=== PATIENT | female | born 1980 | race Caucasian/White ===

== ENCOUNTER 2021-04-15 16:27 | Emergency (ER) | payer SELFPAY ==
[2021-04-15 18:14] VITALS: BP 0/0; PULSE 0; RESP 0; TEMP -17.7; TEMP 0
== END 2021-04-15 18:16 | disposition left against medical advice (07) ==
LOC: UTC 16:32
PROVIDERS: Emergency Provider Nurse Practitioner Family; PCP Nurse Practitioner
DX: Z53.21 Procedure and treatment not carried out due to patient leaving prior to being seen by health care provider (principal)

== ENCOUNTER 2023-08-06 08:19 | Outpatient (CLI) | payer BC, SELFPAY ==
[2023-08-06 08:34] LABS: Basophils # 0.1 K/mm3 (0-0.2); Basophils % 0.8 % (0.1-2.0); Eosinophils # 0.3 K/mm3 (0.0-0.4); Eosinophils % 3.9 % (0.1-12.0); Hematocrit 41.7 % (37.0-47.0); Hemoglobin 13.2 g/dL (12.2-16.2); Lymphocytes # 2.4 K/mm3 (0.7-4.5); Lymphocytes % 31.5 % (10-50); Mean Corpuscular HGB Conc 31.7 g/dL (31.8-35.4); Mean Corpuscular Hemoglobin 29.1 pg (27.0-31.2); Mean Corpuscular Volume 91.8 fl (81-99); Mean Platelet Volume 7.9 fl (7.4-10.4); Monocytes # 0.4 K/mm3 (0.1-1.0); Monocytes % 4.7 % (1.7-9.3); Neutrophils # 4.5 K/mm3 (1.8-7.8); Neutrophils % 59.1 % (37.0-80.0); Platelet Count 315 K/mm3 (142-424); Red Blood Count 4.54 M/mm3 (4.20-5.40); Red Cell Distribution Width 13.6 % (11.5-17.5); White Blood Count 7.6 K/mm3 (4.8-10.8)
--- NOTE | 2023-08-06 08:42 | MM_ITS ---
PROCEDURE INFORMATION: Exam: Bilateral Screening 3D Mammography Exam date and time: 08/06/2023 8:52 AM Age: 43 years old Clinical indication: Screening mammogram TECHNIQUE: Imaging protocol: Bilateral Screening tomosynthesis and 2D mammography including computer-aided detection (CAD) when performed. COMPARISON: MG MOON MAMMO DIAG DIGITL BILAT 12/31/2011 1:11 PM FINDINGS: MAMMOGRAPHY: Breast composition: The breast is heterogeneously dense, which may obscure small masses. Mass: None. Architectural distortion: No new or suspicious architectural distortion. Calcifications: No new or suspicious calcifications are present Asymmetric density: No new or suspicious asymmetric density is present Skin thickening: None. Axillary adenopathy: None. IMPRESSION: No mammographic evidence of malignancy. Recommend annual screening mammography unless otherwise clinically indicated. ASSESSMENT: BI-RADS category 1: Negative.
[2023-08-06 09:24] LABS: Alanine Aminotransferase 13 U/L (12-78); Albumin Level 4.2 g/dl (3.5-5.0); Albumin/Globulin Ratio 1.5 (1.1-1.8); Alkaline Phosphatase 70 U/L (38-126); Anion Gap 13.3 mEq/L (5-15); Aspartate Amino Transferase 21 U/L (14-36); Bilirubin,Total 0.6 mg/dl (0.2-1.3); Blood Urea Nitrogen 13 mg/dl (7-17); Calcium 9.3 mg/dl (8.4-10.2); Carbon Dioxide 22 mmol/L (22.0-30.0); Chloride 106 mmol/L (98-107); Chol/HDL Ratio 4.7 (1-3.5); Cholesterol 218 mg/dl (140-200); Estimated Glomerular Filt Rate 92 ml/min (>60); GFR (African American) 112 ML/MIN (>60); Globulin 2.8 g/dL (1.3-3.2); Glucose 99 mg/dl (74-100); HDL Cholesterol 46 mg/dl (40-60); Potassium 4.3 mmoL/L (3.5-5.1); Sodium 137 mmol/L (136-145); Triglycerides 88 mg/dl (30-150); VLDL Cholesterol 18 mg/dL (0-40)
[2023-08-06 09:35] LABS: Direct LDL Cholesterol 138.25 mg/dL (100-129)
== END 2023-08-06 23:59 | disposition home or self-care (01) ==
PROVIDERS: PCP Family Medicine; Visit Provider Nurse Practitioner Obstetrics & Gynecology
DX: Z12.31 Encounter for screening mammogram for malignant neoplasm of breast (principal)
CPT/HCPCS: 36415; 77063; 77067; 80053; 80061; 85025

== ENCOUNTER 2023-08-11 12:55 | Outpatient (CLI) | payer BC, SELFPAY ==
--- NOTE | 2023-08-11 12:55 | US_ITS ---
PROCEDURE: US TRANSVAGINAL CLINICAL INDICATION: Pelvic pain and heavy periods COMPARISON: No exams were available for comparison FINDINGS: Transvaginal sonographic images of the pelvis were obtained. UTERUS: 7.9 cm x 4.6 cmx 3.8 cm anteverted with a combined endometrial thickness of 2.8mm. There is a small amount of fluid within the cervix. There is a trace amount of fluid at the fundus of the uterus. LEFT OVARY: 6tec0ghe1.5cm with a volume of 5.4ml. There is a follicle measuring 1.8 cm x 1.4 cm x 2.1 cm. RIGHT OVARY: 2cmx [id number] with a volume of 3.3ml. There is a small follicle measuring 0.4 cm x 0.5 cm x 0.5 cm. Both ovaries are seen and appear normal. Doppler flow to both ovaries are seen. There is no fluid in the cul-de-sac. IMPRESSION: 1. Anteverted uterus normal in shape and size. The endometrium is thin. 2. There is a small amount of fluid within the endometrium and cervix. 3. Both ovaries are seen and appear normal. There is a 2.1 cm follicle in the left ovary. 4. No fluid in the cul-de-sac Dictated by: Asher Vale MD 08/11/2023 16:09 Asher Vale MD in [place] 08/11/2023 16:09
== END 2023-08-11 23:59 | disposition home or self-care (01) ==
LOC: RAD 12:55
PROVIDERS: PCP Family Medicine; Visit Provider Nurse Practitioner Obstetrics & Gynecology
DX: R10.2 Pelvic and perineal pain (principal); N92.0 Excessive and frequent menstruation with regular cycle
CPT/HCPCS: 76830

== ENCOUNTER 2024-12-22 07:42 | Outpatient (CLI) | payer BC, SELFPAY ==
--- OUTSIDE RECORDS SUMMARY | 2023-07-31 11:00 | XMS_ITS ---
Author Organization [facility] Address [address] [id number] Care Team Providers Care Wrapper Opener Name Role Phone Basilia Kiko Primary Care Provider Allergies Allergen (clinical drug ingredient) Drug/Non Drug Allergy documented on EMR Reaction Allergy Type Onset Date Status erythromycin Erythromycin Base Unknown Drug Allergy Active Iodine Unknown Drug Allergy Active levofloxacin levoFLOXacin Unknown Drug Allergy A ctive Medicinal cephalosporin and acting as antibacterial agent (FN) Cephalosporins Unknown Drug Allergy Active hydrocodone HYDROcodone Unknown Drug Allergy Act madi Iodinated contrast media (substance) Iodinated Contrast Media Unknown Drug Allergy Active oxycodone oxyCODONE Unknown Drug Allergy Active Penicillin anaphylaxis Drug Allergy Acti ve tramadol traMADol Unknown Drug Allergy Active Results Component Value Reference Range Notes Glycohemoglobin A1c (in hous e) Reviewed date:08/04/2023 09:24:26 AM Interpretation:5.2 Performing Lab: Notes/Report: 5.2 glycohemoglobin 5.2% 5 - 6.5 % P-Comprehensive Metabolic Pa adi (CMP) Reviewed date:08/04/2023 09:24:26 AM Interpretation:Normal Performing Lab: Notes/Report: Test performed by [facility] [address] [place] [address] , [address], [place] [address] Maninder Hopkins MD, Research Hydrologist CLIA: [id number] Sodium 142 135-145 mEq/L Potassium 3.9 3.5-5.3 mEq/L Chloride 108 97-108 mEq/L CO2 23 22-32 mEq/L Glucose 99 65-99 mg/dL BUN 10 6-20 mg/dL Creatinine 0.70 0.50-1.00 mg/dL Calcium 9.6 8.6-10.4 mg/dL eGFR by Creatinine 111 >59 mL/min/1.73m2 Protein 6.6 6.0-8.3 g/dL Albumin 4.3 3.5-5.3 g/dL Alkaline Phosphatase 81 35-121 IU/L ALT (SGPT) 7 <5-47 IU/L AST (SGOT) 10 <5-40 IU/L Bilirubin, Total <0.2 <0.2-1.2 mg/dL A/G Ratio 1.9 1.1-2.5 mg/dL P-T4 Free (thyroxine) Reviewed date:08/04/2023 09:24:26 AM Interpretation:Normal Performing Lab: Notes/Report: Test performed by [facility] [address] [place] [address] , [facility] [place] [id number] Maninder Hopkins MD, Research Hydrologist CLIA: [id number] Thyroxine Free (free T4) 1.05 0.86-1.76 ng/dL P-Lipid Panel Reviewed date:08/04/2023 09:24:26 AM Interpretation:hdl 38, chol/hdl 4.89, non-hdl 148, ldl/hdl 3.3 Performing Lab: Notes/Report: Test performed by [facility] [address] [place] [address] , [address], [place] [address] Maninder Hopkins MD, Research Hydrologist CLIA: [id number] Cholesterol 186 <200 mg/dL Triglycerides 112 <150 mg/dL HDL Cholesterol 38 >39 mg/dL Cholesterol / HDL Ratio 4.89 0.00-4.44 Ratio Non-HDL Cholesterol 148 <130 mg/dL LDL Cholesterol (Calculation) 126 <130 mg/dL LDL Cholesterol Levels* Less than 100 mg/dL Optimal 100 to 129 mg/dL Near Optimal/ Above Optimal 130 to 159 mg/dL Borderline High 160 to 189 mg/dL High 190 mg/dL and above Very High * Categories as recommended by the 2004 ATPIII guidelines LDL/HDL Ratio 3.3 <3.3 Ratio LDL Cholesterol Patient History Test Date: 07/31/2023 LDL Results: 126 Units: mg/dL % Change: - P-TSH Reviewed date:08/04/2023 09:24:26 AM Interpretation:Normal Performing Lab: Notes/Report: Test performed by [facility] [employer] [address] [place] [address] , [address], [place] [address] Maninder Hopkins MD, Research Hydrologist CLIA: [id number] TSH 1.18 0.43-5.25 mU/L REASON FOR VISIT General Physical Problems Problem Type SNOMED Code ICD Code Onset Dates Problem Status W/U Status Risk Notes Problem Hyperlipidemia (79628146) Hyperlipidem ia, acquired (E78.5) Active confirmed Vital Signs Weight 120.8 lbs 07/31/2023 Blood pressure systolic 120 mm Hg 07/31/19 24 Blood pressure diastolic 72 mm Hg 024 Heart Rate 80 /min 07/31/2023 Height 66 in 07/31/2023 BMI 19.50 kg/m2 07/31/2023 Encounters Encounter Location Date Provider Diagnosis [facility] [address] [place], [place] [id number] 07/31/2023 Kiko Cui Abnormal TSH R79.89 ; Hyperlipidemia, acquired E78.5 and Diabetes mellitus screening Z13.1 Assessments Encounter Date Diagnosis (ICD Code) Assessment Notes Treatment Notes Treatment Clinical Notes Section Notes 07/31/2023 Abnormal TSH (ICD-10 - R79.89) 07/31/2023 Hyperlipidemia, acquired (ICD-10 - E78.5) 07/31/2023 Diabetes mellitus screening (ICD-10 - Z13.1) Plan Of Treatment Next Appt Details Follow Up: via phone to repo rt test results, Reason: Progress Notes * MANDO QUINTANAADOB:1980 (44 yo F)Acc No.[id number]:07/31/2023 Progress Notes Patient: TONYA GARAY Provider: Tiffanie Cui M.D. :1980 A ge:43 Y S ex:Female Date:07/31/2023 Address:[address] [place], [place] [id number] Subjective: * Chief Complaints: * 1 . General Physical. * HPI: H PI: 43 year old female presents with c/o Patient is here today for?Pt here to establish care, states she has not had a PCP in years. Pt states she is here for a general check-up and does not have any concerns today. * ROS: D ERMATOLOGY: no R una. n o H conner. G ASTROENTEROLOGY: no N ausea. n o V omiting. U ROLOGY: no D ifficulty urinating. n o B lood in urine. * Medical History: C olitis, Asthma, Migraines, UTI, Liver Enzyme Elevation, Hypokalemia, Irritable Bowel Syndrome, Allergic Rhinitis. * Surgical History: T ubal Ligation , Hysterectomy , LT Breast Fibroadenoma Removal . * Hospitalization/Major Diagno stic Procedure: [facility] - Abdominal pain/Colitis 12/03/15-11/2015. * Family History: F ather: . M other: alive, diagnosed with Diabetes, Heart Disease. 1 brother(s) , 3 sister(s) . 2 son(s) , 1 daughter(s) . . * Social History: C URRENT TOBACCO USE: No . C affeine: yes, frequency: one a day, coffee, soda. Marital Status: Single. * Medications: D iscontinued Omeprazole 20 MG Capsule Delayed Release 1 cap(s) orally once a day , Discontinued Prochlorperazine Maleate 10 MG Tablet 1 tab(s) orally 4 times a day as needed , Discontinued Promethazine HCl 25 MG Tablet 1 tab(s) orally every 6 hours prn , Discontinued Bentyl 20 MG TABLET 1 TAB(S) ORALLY Q6H PRN , Discontinued MiraLax - POWDER FOR RECONSTITUTION ORALLY ONCE A DAY , Medication List reviewed and reconciled with the patient * Allergies: P enicillin: anaphylaxis, Cephalosporins, Iodine, HYDROcodone, oxyCODONE, Erythromycin Base, traMADol, levoFLOXacin, Iodinated Contrast Media. Objective: * Vitals: W t:120.8, Temp:97.8, BP:120/72, HR:80, Nurse:julio c, Ht:66, BMI:19.50. * Examination: G eneral Examination: General Appearance: N AD. H EENT: u nremarkable.?Oral cavity: n o lesions, mucosa moist and WNL, no erythema. N mirtha: s upple, no lymphadenopathy. H eart: R SR. L ungs: c lear to auscultation. S kin: n ormal, no rash. P eripheral pulses: n ormal (2+) bilaterally. E xtremities: n o leg edema.? Assessment: * Assessment: 1. H yperlipidemia, acquired - E78.5 (Primary) 2 . A bnormal TSH - R79.89? 3. D iabetes mellitus screening - Z13.1 Plan: * Treatment: Value Reference Range A /G Ratio 1.9 1.1-2.5 - mg/dL * A lbumin 4.3 3.5-5.3 - g/dL * A lkaline Phosphatase 81 35-121 - IU/L * A LT (SGPT) 7 <5-47 - IU/L * A ST (SGOT) 10 <5-40 - IU/L * B ilirubin, Total <0.2 <0.2-1.2 - mg/dL * B UN 10 6-20 - mg/dL * C alcium 9.6 8.6-10.4 - mg/dL * C hloride 108 97-108 - mEq/L * C O2 23 22-32 - mEq/L * C reatinine 0.70 0.50-1.00 - mg/dL * G lucose 99 65-99 - mg/dL * P otassium 3.9 3.5-5.3 - mEq/L * S odium 142 135-145 - mEq/L * P rotein 6.6 6.0-8.3 - g/dL * e GFR by Creatinine 111 >59 - mL/min/1.73m2 * Peyton Mcclendon 08/04/2023 9:23 :33 AM >See phone encounter ?LAB: P-Lipid Panel (Collection Date & Time - 07/31/2023 03:00 PM)?hdl 38, chol/hdl 4.89, non-hdl 148, ldl/hdl 3.3* Value Reference Range C holesterol / HDL Ratio 4.89 H 0.00-4.44 - Ratio * C holesterol 186 <200 - mg/dL * H DL Cholesterol 38 L >39 - mg/dL * L DL Cholesterol (Calculation) 126 <130 - mg/d L * L DL/HDL Ratio 3.3 H <3.3 - Ratio * N on-HDL Cholesterol 148 H <130 - mg/dL * T riglycerides 112 <150 - mg/dL * Peyton Mcclendon 08/04/2023 9:23 :33 AM >See phone encounter 2.?Abnormal TSH?LAB: P-T4 Free (thyroxine) (Collection Date & Time - 07/31/2023 03:00 PM)? Normal* Value Reference Range T hyroxine Free (free T4) 1.05 0.86-1.76 - ng/d L * Peyton Mcclendon 08/04/2023 9:23 :33 AM >See phone encounter ?LAB: P-TSH (Collection Date & Time - 07/31/2023 03:00 PM)?Normal* Value Reference Range T SH 1.18 0.43-5.25 - mU/L * Peyton Mcclendon 08/04/2023 9:23 :33 AM >See phone encounter 3.?Diabetes mellitus screening?LAB: Glycohemoglobin A1c (in house) (Collection Date & Time - 07/31/2023)? 5.2* Value Reference Range g lycohemoglobin 5.2% 5 - 6.5 % * Cris Valentine 07/31/2023 4:16:32 PM > Peyton Mcclendon 08/04/2023 9:23:33 AM >See phone encounter * Procedure Codes: 8 3036 GLYCATED HEMOGLOBIN TEST, Modifiers: QW * Follow Up: v ia phone to report test results * Images: Billing Information: * Visit Code: 55745 Office Visit, New Pt., Level 3. * Procedure Codes: 24406 GLYCATED HEMOGLOBIN TEST. Modifiers: QW * Electronic signature of Jammie Cui MD on 12/22/2024 at 07:44 AM EDT Sign off status: Pending * Provider: Tiffanie Cui M.D. Date: 0 07/31/2023 Generated for Cristobal moise/Grace/Sara on: 1 07:44 AM EDT History and Physical Notes * HPI (History of Present Illness) Category Sub-Category Detail Notes Category Not es HPI Patient is here today for Pt her e to establish care, states she has not had a PCP in years. Pt states she is here for a general check-up and does not have any concerns today Examination Category Sub-Category Detail Notes Category Not es General Examination HEENT: unremarkable Heart: RSR Lungs: clear to auscultatio n Extremities: no leg edema General Appearance: NAD Skin: normal, no rash Neck: supple, no lymphaden opathy Oral cavity: no lesions, mucosa m oist and WNL, no erythema Peripheral pulses: normal (2+) bilatera lly
--- OUTSIDE RECORDS SUMMARY | 2023-11-25 09:45 | XMS_ITS ---
Author Organization [facility] Address [facility] [facility] [address] [id number] Care Team Providers Care Blueprint Reproducer Name Role Phone Kiko Cui Primary Care Provider [phone] Allergies Allergen (clinical drug ingredient) Drug/Non Drug [...] ve tramadol traMADol Unknown Drug Allergy Active REASON FOR VISIT coughing, pos home COVID Medications Medication SIG (Take, Route, Frequency, Duration) Notes Start Date End Date Status Promethazine-DM 6.25-15 MG/5ML 5 ml as needed Orally every 6 hrs 11/25/2023 Active Benzonatate 200 MG 1 capsule as needed Orally Three times a day 11/25/2023 Active Vital Signs Weight 117.8 lbs 11/25/2023 Blood pressure systolic 116 mm Hg 11/25/19 24 Blood pressure diastolic 70 mm Hg 024 Heart Rate 105 /min 11/25/2023 Height 66 in 11/25/2023 BMI 19.01 kg/m2 11/25/2023 Encounters Encounter Location Date Provider Diagnosis [facility] [address] [place] [id number] 11/25/2023 Kiko Cui COVID-19 U07.1 Assessments Encounter Date Diagnosis (ICD Code) Assessment Notes Treatment Notes Treatment Clinical Notes Section Notes 11/25/2023 COVID-19 (ICD-10 - U07.1) Plan Of Treatment Medication Medication Name Sig Start Date Stop Date Notes Promethazine-DM 6.25-15 MG/5ML 5 ml as n eeded Orally every 6 hrs 11/25/2023 Benzonatate 200 MG 1 capsule as needed Orally Three times a day 11/25/2023 Next Appt Details Follow Up: prn, Reason: Progress Notes * MANDO QUINTANAADOB:1980 (44 yo F)Acc No.[id number]:11/25/2023 Progress Notes Patient: TONYA GARAY Provider: Tiffanie Cui M.D. :1980 A ge:43 Y S ex:Female Date:11/25/2023 Address:[address] [place] [address] Subjective: * Chief Complaints: * 1 . coughing, pos home COVID. * HPI: E NT/respiratory: 43 year old female presents with c/o cough P t complains of dry without any sputum production cough that started yesterday. Associated with fever, body aches, headache, sore throat and nasal congestion. Pt states that her son had Covid last week and pt had positive home Covid test yesterday morning. * ROS: D ERMATOLOGY: no R una. [...] coffee, soda. Marital Status: Single. * Medications: N one * Allergies: P enicillin: anaphylaxis, Cephalosporins, Iodine, HYDROcodone, oxyCODONE, Erythromycin Base, traMADol, levoFLOXacin, Iodinated Contrast Media. Objective: * Vitals: W t:117.8, Temp:98.8, BP:116/70, HR:105, O2 Sat:99% on RA, Nurse:julio c, Ht: 66, BMI:19.01. * Examination: E NT/Respiratory: General Appearance: N AD, coughing. H eart : R RR, normal S1 S2. L ungs: c lear to auscultation bilaterally. Assessment: * Assessment: 1. C OVID-19 - U07.1 (Primary) Plan: * Treatment: * Procedure Codes: 9 4760 PULSE OX * Follow Up: p rn * Images: Billing Information: * Visit Code: 66800 Office Visit, Est Pt., Level 3. * Procedure Codes: 84135 PULSE OX. * Electronic signature of Jammie Cui MD on 12/22/2024 at 07:44 AM EDT Sign off status: Pending * Provider: Tiffanie Cui M.D. Date: 0 11/25/2023 Generated for Cristobal moise/Grace/eTransmitting on: 1 07:44 AM EDT History and Physical Notes * HPI (History of Present Illness) Category Sub-Category Detail Notes Category Not es ENT/respiratory cough Pt complains of dry without any sputum production cough that started yesterday. Associated with fever, body aches, headache, sore throat and nasal congestion. Pt states that her son had Covid last week and pt had positive home Covid test yesterday morning Examination Category Sub-Category Detail Notes Category Not es ENT/Respiratory Heart : RRR, normal S1 S2 Lungs: clear to auscultatio n bilaterally General Appearance: NAD, coughing
--- OUTSIDE RECORDS SUMMARY | 2024-12-22 07:45 | XMS_ITS | Patient Health Record ---
[facility] [address] [facility] [address] [phone] Care Team Providers Care Umbrella Tipper Hand Name Role Phone Kiko Cui Primary Care Provider Allergies Allergen (clinical drug [...] ve tramadol traMADol Unknown Drug Allergy Active Reason For Referral No Information Medications Medication SIG (Take, Route, Frequency, Duration) Notes Start Date End Date Status Promethazine-DM 6.25-15 MG/5ML 5 ml as needed Orally every 6 hrs 11/25/2023 Active Benzonatate 200 MG 1 capsule as needed Orally Three times a day 11/25/2023 Active Problems Problem Type SNOMED Code ICD Code Onset Dates Problem Status W/U Status Risk Notes Problem Hyperlipidemia (87993649) Hyperlipidem ia, acquired (E78.5) Active confirmed Plan Of Treatment No Information Insurance Providers Payer Name Payer Address Payer Phone Subscriber Number Group Number Insured Name Patient Relationship to Insured Coverage Start Date Coverage End Date [employer] [address] [place] [address] [id number] 2000 [id number] TONYA QUINTANA Self - patient is the insured Medical (General) History Medical History History ICD Code Colitis Asthma Migraines UTI Liver Enzyme Elevation Hypokalemia Irritable Bowel Syndrome Allergic Rhinitis Surgical History Surgery Date(Month/Year) Tubal Ligation Hysterectomy LT Breast Fibroadenoma Removal Hospitalization History Reason Date(Month/Year) [facility] - Abdominal pain/Colitis 12/03/15-
--- NOTE | 2024-12-22 08:00 | US_ITS ---
PROCEDURE INFORMATION: Exam: US Left Breast, Complete US Right Breast, Complete Exam date and time: 12/22/2024 7:53 AM Age: 44 years old Clinical indication: Left breast tenderness. TECHNIQUE: Imaging protocol: Complete ultrasound of all four quadrants of the left breast and the retroareolar regions, including ultrasound of the axilla when performed. Complete ultrasound of all four quadrants of the right breast and the retroareolar regions, including ultrasound of the axilla when performed. COMPARISON: MG MM DIG SCREENING MAMM BI W/CAD 08/06/2023 8:52 AM FINDINGS: ULTRASOUND: Breast ultrasound findings: Within the left breast, there are scattered subcentimeter cysts. Complicated cyst at the left breast 2 o'clock axis, 4 cm from the nipple measuring 0.6 and 0.4 cm, respectively. Complicated cyst in the left breast 10 o'clock axis, 3 cm from the nipple measuring 0.6 x 0.8 x 0.4 cm. Benign-appearing lymph node in the left axilla that measures 1 cm. Within the right breast, there are benign appearing subcentimeter cysts. There is no solid or suspicious mass. No shadowing or distortion. No axillary adenopathy. IMPRESSION: 1. Sonographic findings as described above in the left breast are probably benign. No suspicious findings in the right breast. 2. A six-month follow-up left breast ultrasound is recommended for follow-up of cysts at the 2 o'clock axis, 10 o'clock axis, and a benign-appearing lymph node in the left axilla. ASSESSMENT: BI-RADS Category 3: Probably benign.
== END 2024-12-22 23:59 | disposition home or self-care (01) ==
LOC: RAD 07:42
PROVIDERS: PCP Family Medicine; Visit Provider Nurse Practitioner Obstetrics & Gynecology
DX: N60.02 Solitary cyst of left breast (principal); N60.01 Solitary cyst of right breast
CPT/HCPCS: 76641